=== PATIENT | female | born 1995 | race Caucasian/White ===

== ENCOUNTER 2018-06-07 17:21 | Emergency (ER) | payer OTHER ==
[2018-06-07] MEDS ORDERED: Ketorolac INJ* 30 MG/ML 1 ML VIAL IV ONE (20:28)
[2018-06-07] MEDS ORDERED: NS 0.9% 1000 ML* 1,000 ML IV ONE (20:28)
--- NOTE | 2018-06-07 20:28 | ED ---
Abdominal Pain/Female - HPI Summary HPI Summary: This patient is a 22 year old F presenting to [facility] with a chief complaint of fluctuating abdominal pain since 06/03/2018. The patient rates the pain 2/10 in severity currently. Symptoms aggravated by walking. Patient denies nausea, vomiting, and difficulty eating. Her last normal BM was this morning. She takes control pills and antidepressants. - History of Current Complaint Chief Complaint: EDAbdPain Stated Complaint: ABD PAIN/LIGHT HEADED Time Seen by Provider: 06/07/18 20:17 Hx Obtained From: Patient Onset/Duration: Sudden Onset, Lasting Days - Since 06/03/2018, Still Present Timing: Constant Severity Initially: Moderate Severity Currently: Mild Pain Intensity: 2 Pain Scale Used: 0-10 Numeric Location: Diffuse Radiates: No Aggravating Factor(s): Movement - Walking Associated Signs and Symptoms: Negative: Decreased Appetite, Nausea, Vomiting Allergies/Adverse Reactions: Allergies Allergy/AdvReac Type Severity Reaction Status Date / Time No Known Allergies Allergy Verified 06/07/18 20:58 PMH/Surg Hx/FS Hx/Imm Hx Endocrine/Hematology History: Denies: Hx Diabetes Respiratory History: Denies: Hx Asthma Infectious Disease History: No Infectious Disease History: Denies: Traveled Outside the [place] in Last 30 Days - Family History Known Family History: Negative: Cardiac Disease - Social History Occupation: Student Alcohol Use: Weekly Hx Tobacco Use: No Review of Systems Negative: Fever Positive: Abdominal Pain. Negative: Vomiting, Nausea, Other - Difficulty eating or decreased appetite All Other Systems Reviewed And Are Negative: Yes Physical Exam - Summary Physical Exam Summary: VITAL SIGNS: Reviewed. GENERAL: Patient is a well-developed and nourished FEMALE who is lying comfortable in the stretcher. Patient is not in any acute respiratory distress. HEAD AND FACE: No signs of trauma. No ecchymosis, hematomas or skull depressions. No sinus tenderness. EYES: PERRLA, EOMI x 2, No injected conjunctiva, no nystagmus. EARS: Hearing grossly intact. Ear canals and tympanic membranes are within normal limits. MOUTH: Oropharynx within normal limits. NECK: Supple, trachea is midline, no adenopathy, no JVD, no carotid bruit, no c- spine tenderness, neck with full ROM. CHEST: Symmetric, no tenderness at palpation LUNGS: Clear to auscultation bilaterally. No wheezing or crackles. CVS: Regular rate and rhythm, S1 and S2 present, no murmurs or gallops appreciated. ABDOMEN: Diffuse abd tenderness with more tenderness at RLQ. No signs of distention. No rebound no guarding, and no masses palpated. Bowel sounds are normal. EXTREMITIES: FROM in all major joints, no edema, no cyanosis or clubbing. NEURO: Alert and oriented x 3. No acute neurological deficits. Speech is normal and follows commands. SKIN: Dry and warm Triage Information Reviewed: Yes Vital Signs On Initial Exam: Initial Vitals Temp Pulse Resp BP Pulse Ox 97.9 F 80 16 123/77 99 06/07/18 17:32 06/07/18 17:32 06/07/18 17:32 06/07/18 17:32 06/07/18 17:32 Vital Signs Reviewed: Yes Diagnostics - Vital Signs Vital Signs Temp Pulse Resp BP Pulse Ox 06/07/18 17:32 97.9 F 80 16 123/77 99 - Laboratory Result Diagrams: 06/07/18 20:41 06/07/18 20:41 Lab Statement: Any lab studies that have been ordered have been reviewed, and results considered in the medical decision making process. - CT CT Abdomen/Pelvis CT Interpretation Completed By: Radiologist - 23:25. 1. Air in the bladder. Differential possibilities include recent instrumentation, cystitis, and fistula. 2. No other acute findings. ED Physician has reviewed this imaging report. Abdominal Pain Fem Course/Dx - Course Course Of Treatment: This patient is a 22 year old F presenting to [facility] with a chief complaint of fluctuating abdominal pain since 06/03/2018. The patient rates the pain 2/10 in severity currently. Symptoms aggravated by walking. Patient denies nausea, vomiting, and difficulty eating. Her last normal BM was this morning. She takes control pills and antidepressants. The CT abd/ pelvis 23:25 showed: 1. Air in the bladder. Differential possibilities include recent instrumentation, cystitis, and fistula. 2. No other acute findings. Patient will be discharged home with a dx of UTI. She has been prescribed Levofloxacin and instructed to follow up with the [facility] in 1- 3 days. - Diagnoses Provider Diagnoses: UTI (urinary tract infection) Discharge - Sign-Out/Discharge Documenting (check all that apply): Patient Departure - D/C - Discharge Plan Condition: Stable Disposition: HOME Prescriptions: Levofloxacin TAB* [Levaquin TAB*] 500 mg PO DAILY #7 tab Patient Education Materials: Urinary Tract Infection in Women (ED) Referrals: No Primary Care Phys,NOPCP [Primary Care Provider] - (Follow up with [facility] in 1-3 days.) Additional Instructions: RETURN TO THE EMERGENCY DEPARTMENT FOR CHANGING OR WORSENING SYMPTOMS. FOLLOW UP WITH PCP IN 1-2 DAYS. - Attestation Statements Document Initiated by Scribe: Yes Documenting Scribe: Eagle Diamond Provider For Whom Scribe is Documenting (Include Credential): Joel Dhaliwal MD Scribe Attestation: Eagle Bey, scribed for Joel Dhaliwal MD on 06/07/18 at [id number].
[2018-06-07 20:51] LABS: ABS Basophils 0 10^3/ul (0-0.2); ABS Eosinophils 0.1 10^3/ul (0-0.6); ABS Lymphocytes 1.4 10^3/ul (1.0-4.8); ABS Monocytes 0.6 10^3/ul (0-0.8); ABS Neutrophils 6.3 10^3/ul (1.5-7.7); ABS Nucleated RBC 0 10^3/ul; Eosinophil % 0.9 % (0-6); Hematocrit 36 % (35-47); Hemoglobin 12.3 g/dl (12.0-16.0); Lymphocyte % 16.3 % (25-47); Mean Corpuscular HGB Conc 34 g/dl (31-36); Mean Corpuscular Hemoglobin 30 pg (27-31); Mean Corpuscular Volume 89 fL (80-97); Mean Platelet Volume 7.2 um3 (7.4-10.4); Nucleated Red Blood Cells % 0.1; Platelet Count 277 10^3/ul (150-450); Red Cell Distribution Width 14 % (10.5-15); White Blood Count 8.4 10^3/ul (3.5-10.8)
[2018-06-07 21:10] LABS: EGFR Non-African American 135.2 (>60)
[2018-06-07] MEDS ORDERED: Iohexol 300* (CONTRAST) 10 ML SDV IV ONE (21:21)
[2018-06-07 22:01] LABS: Urine Appearance Cloudy; Urine Blood 2+ (Negative); Urine Color Yellow; Urine Ketones Trace (Negative); Urine Protein Negative (Negative); Urine Specific Gravity 1.006 (1.010-1.030); Urine Urobilinogen Negative (Negative)
[2018-06-07 22:06] LABS: Urine Red Blood Cell 2+(6-10/hpf) (Absent); Urine White Blood Cell 3+(>20/hpf) (Absent)
[2018-06-07] MEDS ORDERED: Levofloxacin TAB* 500 MG PO ONE (22:29)
--- NOTE | 2018-06-07 23:26 | RAD ---
EXAM: CT Abdomen and Pelvis With Intravenous Contrast CLINICAL HISTORY: 22 years old, female; Pain; Abdominal pain; Generalized; Additional info: Abd pain TECHNIQUE: Axial computed tomography images of the abdomen and pelvis with intravenous contrast. All CT scans at this facility use at least one of these dose optimization techniques: automated exposure control; mA and/or kV adjustment per patient size (includes targeted exams where dose is matched to clinical indication); or iterative reconstruction. Coronal and sagittal reformatted images were created and reviewed. CONTRAST: 76 mL of OMNI administered intravenously. COMPARISON: No relevant prior studies available. FINDINGS: Lung bases: Unremarkable. No mass. No consolidation. ABDOMEN: Liver: Unremarkable. No mass. Gallbladder and bile ducts: Unremarkable. No calcified stones. No ductal dilation. Pancreas: Unremarkable. No mass. No ductal dilation. Spleen: Unremarkable. No splenomegaly. Adrenals: Unremarkable. No mass. Kidneys and ureters: Unremarkable. No solid mass. No hydronephrosis. Stomach and bowel: Prominent amount of fecal material throughout the colon. No obstruction. No mucosal thickening. PELVIS: Appendix: No findings to suggest acute appendicitis. Bladder: Small focus of air in the bladder. Reproductive: Unremarkable as visualized. ABDOMEN and PELVIS: Intraperitoneal space: Unremarkable. No free air. No significant fluid collection. Bones/joints: No acute fracture. No dislocation. Soft tissues: Unremarkable. Vasculature: Unremarkable. No abdominal aortic aneurysm. Lymph nodes: Unremarkable. No enlarged lymph nodes. IMPRESSION: 1. Air in the bladder. Differential possibilities include recent instrumentation, cystitis, and fistula. 2. No other acute findings.
[2018-06-07 23:58] VITALS: BP 112/71
--- NOTE | 2018-06-10 06:22 | PN ---
Progress Note - Progress Note Date of Service: 06/07/18 Note: Patient urine culture grew staph Patient placed on levaquin nothing furhter at this time, Rebekah Franks, PAC
== END 2018-06-08 00:10 | disposition home or self-care (01) ==
LOC: ED 17:21
DX: N39.0 Urinary tract infection, site not specified (principal); R10.9 Unspecified abdominal pain
CPT/HCPCS: 36415; 74177; 80053; 81003; 81015; 82150; 83605; 83690; 83735; 84702; 85025; 86140; 87077; 87086; 96374; 99283; J1885; Q9967